=== PATIENT | female | born 1990 | race Caucasian/White ===

== ENCOUNTER 2022-02-02 08:56 | Emergency (ER) | payer MEDICAID ==
[~2022-02-02] VITALS: Ht 149.9 cm; Wt 67.1 kg
[~2022-02-02 08:56] MED LIST: HYDR-3917 PO; IBUP-1969 PO; SULF1TAB47 PO
[2022-02-02 09:06] VITALS: BP_SYST 128
--- NOTE | 2022-02-02 09:14 | NUR ---
PT BIBS WITH C/C OF HAVING RIGHT BREAST INCISION DRAINAGE. REPORTS SCANT YELLOW DRAINAGE FROM RIGHT BREAST. HX OF BILATERAL BREAST RECONSTRUCTION IN [place] ON 01/12/22. LEFT BREAST INCISION WELL APPROXIMATED, HEALED. RIGHT BREAST INCISION ON LOWER VERTICAL INCISION LINE WITH SMALL APPROXIMATELY 0.5CM WIDE OPENING. SUPERFICIAL WITH NO APPARENT DRAINAGE AT THIS TIME. PT REPORTS HAVING BILATERAL BREAST IMPLANT REMOVAL O 04/10. REPORTS PAIN /, TOLERABLE, DENIES NEED FOR MEDICATION AT THIS TIME. REPORTS HAVING FINISHED A DOSE OF BACTRIM ON 01/26/22. PLACED PT BACK IN WAITING ROOM. WILL NOTIFY DR. GOODWIN.
--- NOTE | 2022-02-02 09:19 | NUR ---
DR. GOODWIN IN TRIAGE TO ASSESS PT.
[2022-02-02] MEDS ORDERED: BACI15OI13 TP (10:01)
--- NOTE | 2022-02-02 10:27 | NUR ---
PT CLEARED FOR DC. RX SENT TO PT'S PHARM. PT VERBALIZED UNDERSTANDING AND AMBULATED OUT OF ED IN STABLE CONDITION.
[2022-02-02 10:28] VITALS: BP_SYST 130
== END 2022-02-02 10:28 | disposition home or self-care (01) ==
LOC: SED 08:56
DX: Z48.00 Encounter for change or removal of nonsurgical wound dressing (principal); Z88.1 Allergy status to other antibiotic agents; Z79.899 Other long term (current) drug therapy
CPT/HCPCS: 99282

== ENCOUNTER 2022-02-10 08:29 | Emergency (ER) | payer MEDICAID ==
[~2022-02-10] VITALS: Ht 149.9 cm; Wt 67.1 kg
[~2022-02-10 08:29] MED LIST changes: +BACI15OI13 TP
[2022-02-10 08:34] VITALS: BP_SYST 135
--- NOTE | 2022-02-10 08:41 | NUR ---
BIBS WITH C/C OF BILATERAL BREAST PAIN L > R. PT RECENTLY IN ED FOR RIGHT BREAST INCISION DRAINAGE AND PRESCRIBED ABX. PT WITH HISTORY OF REMOVAL OF BREAST IMPLANTS IN 2020 WITH BILATERAL BREAST RECONSTRUCTION ON 01/12/2022. PT COMPLETED DOSE OF ABX BUT NOW COMPLAINS OF LUMP IN LEFT BREAST LOWER LATERAL ASPECT. PT ALSO REPORTS RIGHT LATERAL BREAST PAIN. PT C/O INABILITY TO SLEEP DUE TO PAIN. PT WANTS TO KNOW WHY SHE HAS A LUMP IN HER LEFT BREAST. NO OTHER MED HX.
--- NOTE | 2022-02-10 09:00 | NUR ---
ER at bedside examining patient.
[2022-02-10] MEDS ORDERED: CLIN-142 PO (12:49)
[2022-02-10] MEDS ORDERED: TRAM50TA PO (12:49)
--- NOTE | 2022-02-10 12:58 | NUR ---
Patient given written and verbal discharge instructions and verbalizes understanding. ER MD discussed with patient the results and treatment provided. Patient in stable condition. ID arm band removed. IV catheter removed intact and dressing applied, no active bleeding. Rx of Clindamycin and Tramadol given. Patient educated on pain management and to follow up with PMD. Opportunity for questions provided and answered. Medication side effect fact sheet provided.
[2022-02-10 13:00] VITALS: BP_SYST 135
== END 2022-02-10 13:00 | disposition home or self-care (01) ==
LOC: SED 08:29
DX: N63.20 Unspecified lump in the left breast, unspecified quadrant (principal); Z88.1 Allergy status to other antibiotic agents; Z79.899 Other long term (current) drug therapy
CPT/HCPCS: 76642; 99284